=== PATIENT | male | born 1965 | race Caucasian/White ===

== ENCOUNTER 2017-03-27 08:27 | Emergency (ER) | payer SELFPAY ==
--- NOTE | 2017-03-27 08:37 | EDPHY ---
H & P Stated Complaint: htn/hypoxia/tachy/blurred vision HPI/ROS: CHIEF COMPLAINT: Blurred vision HISTORY OF PRESENT ILLNESS: This patient is a 51 year old male with history of hypertension arriving via private vehicle complaining of blurred vision and generalized weakness onset upon waking this morning. He was on Atenolol for hypertension years ago, but he and his primary care physician discontinued this when his blood pressure stabilized. Today, he felt his vision was blurred upon waking, and then developed diplopia. He denies any other symptoms including headache chest pain, or difficulty breathing. He endorses some occasional difficulty breathing at night, without recent change. No exertional dyspnea or chest pain. No abdominal pain, vomiting. No headache or recent head or neck trauma. He has had red, swollen, and blistered legs for the last two weeks, onset following a hike. He noted mild shortness of breath at that time, but attributed it to altitude. Recent weight gain over the last two months. REVIEW OF SYSTEMS: A 10 point review of systems was performed and is negative with the exception of the elements mentioned in the history of present illness. - Personal History Current Tetanus/Diphtheria Vaccine: Unsure - Medical/Surgical History PMH: 1. Hypertension Hx Asthma: No Hx Chronic Respiratory Disease: No Hx Diabetes: No Hx Cardiac Disease: No Hx Renal Disease: No Hx Cirrhosis: No Hx Alcoholism: No Hx HIV/AIDS: No Hx Splenectomy or Spleen Trauma: No Other PMH: htn - Social History Smoking Status: Never smoked Additional Social History: Works at [employer] in [place]. Lives in [place]. Single. Nonsmoker. - Physical Exam Exam: General Appearance: Alert, pleasant and talkative Eyes: Pupils equal and round, no conjunctival pallor or injection. Extraocular motion intact. Slight disconjugate gaze with right upwards gaze. ENT, Mouth: Mucous membranes moist Neck: Normal inspection Respiratory: Lungs are clear to auscultation Cardiovascular: Regular tachycardia Gastrointestinal: Abdomen is obese, non-tender. Firm in infraumbilical area. No definite mass. Neurological: Alert, oriented x3, cranial nerves II through XII intact, motor 5 /5, sensory intact to light touch, gait not assessed Skin: Warm and dry Extremities: Lower extremities erythematous distal to the knees bilaterally. Bilateral 3+ edema. Scabbed over lesions on anterior legs. Psychiatric: Mood and affect normal Constitutional: Initial Vital Signs Temperature (C) 36.8 C 03/27/17 08:29 Heart Rate 128 H 03/27/17 08:29 Respiratory Rate 22 H 03/27/17 08:29 Blood Pressure 262/153 H 03/27/17 08:29 O2 Sat (%) 86 L 03/27/17 08:29 O2 Delivery Mode Nasal Cannula O2 (L/minute) 6 Allergies/Adverse Reactions: No Known Allergies Allergy (Unverified 03/27/17 08:29) Home Medications: Medication Instructions Recorded Aspirin [Aspirin 325 mg (*)] 325 mg PO Q7D 03/27/17 Multivitamins [Multivitamin (*)] 1 each PO Q7D 03/27/17 Medical Decision Making - Diagnostics EKG Interpretation: EKG interpreted by me reveals sinus tachycardia, rate 115, [DIANNE, LVH, borderline prolonged QT] Imaging Results: Imaging Impressions Chest X-Ray 03/27/17 09:04 Impression: 1. Underlying fluid overload/CHF suspected. Head CT 03/27/17 09:04 Impression: There is no acute intracranial abnormality identified on this unenhanced CT evaluation. If there is further clinical concern regarding the patient's symptoms, MR imaging is suggested, if not otherwise contraindicated. Findings were discussed with BELEM HERNANDEZ MD at 9:42 AM, on 03/27/2017. Imaging: Discussed imaging studies w/ search coordinator Radiologist, I viewed and interpreted images myself ED Course/Re-evaluation: 51 y/o male presents with blurred vision and imbalance onset this morning upon waking. He is hypertensive, tachycardic, and hypoxemic at triage, BP 262/153, HR 128, SpO2 86% on room air. Exam reveals slight disconjugate gaze with right upwards gaze, extraocular motion intact. His abdomen seems firm in the infraumbilical area, but I do not identify any definite masses,and he is nontender. The patient's lower extremities are erythematous with 3+ edema and scabbed-over lesions anteriorly. EKG shows sinus tachycardia, full interpretation above. Presentation consistent with hypertensive emergency. Nipride IV drip ordered; will attempt to titrate the blood pressure down slowly , with a goal of a 20% reduction over the next 2 hours. Patient's SpO2 is now 91 % on oxygen by nasal cannula. Plan for chest x-ray to evaluate for pulmonary edema, and CT head to rule out intracranial hemorrhage. 9:[address] Villalba, radiologist. CT negative. Results discussed with the patient. Neurologic exam remains unchanged. The patient will require MRI of the brain once he is stabilized. Chest x-ray independently reviewed by me reveals pulmonary edema. Lasix 20 mg IV and aspirin 324 mg orally given. 10:26 BP 204/129. Neurologic exam remains unchanged. 10:[address] Tracey, hospitalist. Dr. Cardoza will accept admission to ICU for hypertensive emergency. 11:00 a.m.-reassessed patient. He is comfortably sleeping and easily aroused. He has no complaints at this time. Blood pressure 176/118. Blood sugar elevated at 200, no prior history of diabetes. Awaiting ICU bed. 11:56 transient run of SVT, resolved by the time I entered the room. Nipride drip held transiently, then restarted. He had no further episodes of SVT while on the Nipride drip. 12:30 [facility] has no ICU beds available. Consulted with accepting hospitalist at [facility]. The patient will be transferred to the [facility] ICU for further care. Differential Diagnosis: Differential diagnosis includes though not limited to intracranial hemorrhage, acute coronary syndrome, acute renal failure, respiratory failure. Critical Care Time: I spent a total of 50 minutes of critical care time in obtaining history, performing a physical exam, bedside monitoring of interventions, collecting and interpreting tests and discussion with consultants but not including time spent performing procedures. Organs at risk: brain, heart - Data Points Laboratory Results: Laboratory Results 03/27/17 08:55 03/27/17 10:01 03/27/17 03/27/17 03/27/17 10:01 08:55 08:55 WBC 7.97 10^3/uL 10^3/uL (3.80-9.50) RBC 6.51 10^6/uL H 10^6/uL (4.40-6.38) Hgb 17.5 g/dL g/dL (13.7-17.5) Hct 55.2 % H % (40.0-51.0) MCV 84.8 fL fL (81.5-99.8) MCH 26.9 pg L pg (27.9-34.1) MCHC 31.7 g/dL L g/dL (32.4-36.7) RDW 17.3 % H % (11.5-15.2) Plt Count 242 10^3/uL 10^3/uL (150-400) MPV 11.2 fL fL (8.7-11.7) Neut % (Auto) 78.7 % H % (39.3-74.2) Lymph % (Auto) 11.7 % L % (15.0-45.0) [place] % (Auto) 7.5 % % (4.5-13.0) Eos % (Auto) 1.0 % % (0.6-7.6) Baso % (Auto) 0.5 % % (0.3-1.7) Nucleat RBC Rel Count 0.0 % % (0.0-0.2) Absolute Neuts (auto) 6.27 10^3/uL 10^3/uL (1.70-6.50) Absolute Lymphs (auto) 0.93 10^3/uL L 10^3/uL (1.00-3.00) Absolute Monos (auto) 0.60 10^3/uL 10^3/uL (0.30-0.80) Absolute Eos (auto) 0.08 10^3/uL 10^3/uL (0.03-0.40) Absolute Basos (auto) 0.04 10^3/uL 10^3/uL (0.02-0.10) Absolute Nucleated RBC 0.00 10^3/uL 10^3/uL (0-0.01) Immature Gran % 0.6 % % (0.0-1.1) Immature Gran # 0.05 10^3/uL 10^3/uL (0.00-0.10) Sodium 137 mEq/L mEq/L REJ (134-144) Potassium 4.7 mEq/L mEq/L Not Reported (3.5-5.2) Chloride 97 mEq/L mEq/L Not Reported (97-110) Carbon Dioxide 32 mEq/l H mEq/l Not Reported (22-31) Anion Gap 8 mEq/L mEq/L Not Reported (8-16) BUN 14 mg/dL mg/dL Not Reported (7-23) Creatinine 0.9 mg/dL mg/dL Not Reported (0.7-1.3) Estimated GFR > 60 Not Reported Glucose 201 mg/dL H mg/dL Not Reported (70-100) Calcium 8.7 mg/dL mg/dL Not Reported (8.5-10.4) Troponin I 0.082 ng/mL H ng/mL REJ (0.000-0.034) NT-Pro-B Natriuret Pep 1540 pg/mL H pg/mL REJ (0-125) Specimen Hemolysis 164 Medications Given: Discontinued Medications Aspirin (Aspirin) 324 mg PO EDNOW ONE Stop: 03/27/17 10:31 Last Admin: 03/27/17 10:44 Dose: 324 mg Aspirin (Aspirin) 325 mg PO Q7D [facility] Stop: 09/23/17 11:44 Last Admin: 03/27/17 11:49 Dose: Not Given Furosemide (Lasix Injection) 20 mg IVP EDNOW ONE Stop: 03/27/17 10:31 Last Admin: 03/27/17 10:44 Dose: 20 mg Sodium Nitroprusside 50 mg/ (Dextrose) 252 mls @ 0 mls/hr IV EDNOW ONE; Titrate PRN Reason: Protocol Stop: 03/27/17 09:03 Last Admin: 03/27/17 09:36 Dose: 252 mls Multivitamins (Tab-A-Vazquez) 1 each PO Q7D [facility] Stop: 09/23/17 11:44 Last Admin: 03/27/17 14:39 Dose: Not Given Departure - Departure Disposition: Acute Care Hospital Not [facility] Clinical Impression: Diplopia, Hypertensive emergency CHF (congestive heart failure) Qualifiers: Congestive heart failure type: unspecified congestive heart failure type Congestive heart failure chronicity: unspecified congestive heart failure chronicity Qualified Code(s): I50.9 - Heart failure, unspecified Condition: Serious Referrals: NONE *PRIMARY CARE P,. [Primary Care Provider] - As per Instructions Report Scribed for: Belem Hernandez Report Scribed by: Yuki Boone Date of Report: 03/27/17 Time of Report: 08:34 Physician Review and Approval Statement: 03/27/17 08:34 Portions of this note were transcribed by a biomedical manager. I personally performed a history, physical exam, medical decision making, and confirmed accuracy of information the transcribed note.
--- NOTE | 2017-03-27 08:45 | CPEKG ---
Heart Rate: 115 RR Interval: 522 P-R Interval: 156 QRSD Interval: 96 QT Interval: 352 QTC Interval: 487 P Maple: 67 QRS Maple: 56 T Wave Maple: 99 EKG Severity - ABNORMAL ECG - EKG Impression: SINUS TACHYCARDIA EKG Impression: DIANNE, CONSIDER BIATRIAL ABNORMALITIES EKG Impression: LEFT VENTRICULAR HYPERTROPHY EKG Impression: BORDERLINE PROLONGED QT INTERVAL Electronically Signed By: Belem Hernandez 27-Mar-2017 15:20:39
[2017-03-27] MEDS ORDERED: NITROPRUSSIDE SODIUM 50 MG in D5W 250 ML IV ONE (09:02)
[2017-03-27 09:48] LABS: % IMMATURE GRANULYOCYTES 0.6 % (0.0-1.1); ABSOLUTE IMMATURE GRANULOCYTES 0.05 10^3/uL (0.00-0.10); ADD DIFF? NO; ADD MORPH? NO; ADD SCAN? NO; ATYPICAL LYMPHOCYTE FLAG 0 (0-99); FRAGMENT RBC FLAG 0 (0-99); HEMATOCRIT 55.2 % (40.0-51.0); HEMOGLOBIN 17.5 g/dL (13.7-17.5); LEFT SHIFT FLG 0 (0-99); LIPEMIA HEMOLYSIS FLAG 80 (0-99); MEAN CELL HEMOGLOBIN 26.9 pg (27.9-34.1); MEAN CELL HEMOGLOBIN CONCENTR. 31.7 g/dL (32.4-36.7); MEAN CELL VOLUME 84.8 fL (81.5-99.8); MEAN PLATELET VOLUME 11.2 fL (8.7-11.7); PLATELET CLUMPS FLAG 0 (0-99); PLATELET COUNT 242 10^3/uL (150-400); RED BLOOD CELL COUNT 6.51 10^6/uL (4.40-6.38); RED CELL DISTRIBUTION WIDTH 17.3 % (11.5-15.2)
[2017-03-27 10:25] LABS: ANION GAP 8 mEq/L (8-16); CALCIUM 8.7 mg/dL (8.5-10.4); CARBON DIOXIDE 32 mEq/l (22-31); CHLORIDE 97 mEq/L (97-110); CREATININE 0.9 mg/dL (0.7-1.3); GLOMERULAR FILTRATION RATE > 60; GLUCOSE 201 mg/dL (70-100); POTASSIUM 4.7 mEq/L (3.5-5.2); SODIUM 137 mEq/L (134-144)
[2017-03-27] MEDS ORDERED: ASPIRIN 81 MG CHEWABLE TAB PO ONE (10:30)
[2017-03-27] MEDS ORDERED: FUROSEMIDE 20 MG/2 ML VIAL IVP ONE (10:30)
[2017-03-27 10:52] VITALS: RESP 16
[2017-03-27 10:59] LABS: SPECIMEN HEMOLYSIS 164
[2017-03-27 11:01] LABS: TROPONIN I 0.082 ng/mL (0.000-0.034)
[2017-03-27] MEDS ORDERED: ONDANSETRON 4 MG/2 ML VIAL IVP PRN (11:34)
[2017-03-27] MEDS ORDERED: ACETAMINOPHEN 325 MG TAB PO PRN (11:34)
[2017-03-27] MEDS ORDERED: ZOLPIDEM TARTRATE 5 MG TAB PO PRN (11:34)
[2017-03-27] MEDS ORDERED: LABETALOL HCL 50 MG/10 ML SYR IVP PRN (11:39)
[2017-03-27] MEDS ORDERED: ASPIRIN 325 MG TAB PO SCH (11:45)
[2017-03-27] MEDS ORDERED: MULTIVITAMINS 1 EACH TAB PO SCH (11:45)
--- NOTE | 2017-03-27 12:01 | CPEKG ---
Heart Rate: 108 RR Interval: 556 P-R Interval: 148 QRSD Interval: 94 QT Interval: 364 QTC Interval: 488 P Robert: 71 QRS Robert: 49 T Wave Robert: 85 EKG Severity - ABNORMAL ECG - EKG Impression: SINUS TACHYCARDIA EKG Impression: ATRIAL PREMATURE COMPLEX EKG Impression: BIATRIAL ABNORMALITIES EKG Impression: LEFT VENTRICULAR HYPERTROPHY EKG Impression: BORDERLINE PROLONGED QT INTERVAL Electronically Signed By: Belem Hernandez 27-Mar-2017 15:20:25
[2017-03-27 14:39] VITALS: BP 148/91; PULSE 101; TEMP 98.8; O2SAT 91
[2017-03-28] MEDS ORDERED: ENOXAPARIN 40 MG/0.4 ML SYR SC SCH (09:00)
== END 2017-03-27 15:15 | disposition short-term general hospital (02) ==
LOC: UNDOADMIN 10:35
DX: I11.0 Hypertensive heart disease with heart failure (principal); I50.9 Heart failure, unspecified; H53.2 Diplopia
CPT/HCPCS: 96365; 96366; J1940